=== PATIENT | female | born 1980 | race African-American/Black ===

== ENCOUNTER 2017-01-29 01:18 | Emergency (ER) | payer SELFPAY ==
[~2017-01-29] VITALS: Ht 152.4 cm; Wt 69.0 kg
[2017-01-29] MEDS ORDERED: SODIUM CHLORIDE 0.9% 1,000 ML IV ONE (06:11)
[2017-01-29] MEDS ORDERED: ONDANSETRON HCL 4MG/2ML VIAL IV STA (06:11)
[2017-01-29] MEDS ORDERED: MORPHINE SULFATE 4 MG/ML CPJ (NOT FOR IM USE) IV STA (06:11)
[2017-01-29] MEDS ORDERED: DEXAMETHASONE 10MG/ML 1ML VIAL IV ONE (06:15)
[2017-01-29 07:03] VITALS: BP 114/55
== END 2017-01-29 07:34 | disposition home or self-care (01) ==
LOC: ER 07:19
DX: G43.909 Migraine, unspecified, not intractable, without status migrainosus (principal); R11.10 Vomiting, unspecified; R03.0 Elevated blood-pressure reading, without diagnosis of hypertension
CPT/HCPCS: 96361; 96374; 96375; 99284; J1100; J2270; J2405; J7030; Z7610